=== PATIENT | male | born 1985 | race Caucasian/White ===

== ENCOUNTER 2018-06-30 23:17 | Emergency (ER) | payer SELFPAY | END 2018-07-01 00:06 | disposition home or self-care (01) | LOC: E/R 23:17 | DX: Z59.0 Homelessness (principal); F17.210 Nicotine dependence, cigarettes, uncomplicated; R40.2142 Coma scale, eyes open, spontaneous, at arrival to emergency department; R40.2252 Coma scale, best verbal response, oriented, at arrival to emergency department; R40.2362 Coma scale, best motor response, obeys commands, at arrival to emergency department | CPT/HCPCS: 99283 ==